=== PATIENT | male | born 1975 | race Caucasian/White ===

== ENCOUNTER → 2023-04-05 13:01 | Outpatient (REF) | payer OTHER, SELFPAY ==
--- NOTE | 2023-04-05 13:05 | HM_ITS ---
* Total monitoring time 2 days. * Underlying rhythm is sinus. Average ventricular rate 77/Min. Range 54 to 142/Min. * Rare ventricular ectopy with minimal burden. One run of 3 beats. * 'double beat' mentioned in patient diary could be from PVCs. MTDD
== END ==
LOC: HO.CARD 13:01
PROVIDERS: PCP Internal Medicine; Visit Provider Internal Medicine
DX: R00.2 Palpitations (principal); Q21.10 Atrial septal defect, unspecified
CPT/HCPCS: 93225